=== PATIENT | female | born 1955 | race Caucasian/White ===

== ENCOUNTER 2018-01-04 06:13 | Inpatient (IN) ==
[2018-01-03 11:02] LABS: Basophils # 0.1 10*3/uL (0.0-0.2); Basophils % 0.8 % (0.0-0.8); Eosinophils # 0.2 10*3/uL (0.0-0.87); Eosinophils % 2.4 % (0.00-10.9); Hematocrit 36.3 VOL% (35.7-47.0); Hemoglobin 12.5 GM/DL (12.0-16.0); Immature Granulocytes % 0.4 %; Immature Granulocytes Absolute 0.03 #; Lymphocytes # 2.1 10*3/uL (1.4-4.0); Lymphocytes % 28.1 % (21.3-54.2); Mean Corpuscular HGB Conc 34.4 GM/DL (32-36); Mean Corpuscular Hemoglobin 31 PG (27-34); Mean Corpuscular Volume 91.2 FL (87-102); Mean Platelet Volume 10.2 FL (9.6-12.0); Monocytes # 0.5 10*3/uL (0.11-0.8); Neutrophils # 4.6 10*3/uL (1.4-7.4); Neutrophils % 61.3 % (38.7-73.9); Platelet Count 189 T/CUMM (130-400); Red Blood Count 3.98 MC/CUMM (3.8-5.5); Red Cell Distribution Width 14.4 % (9.3-17.3); White Blood Count 7.4 T/CUMM (4-12)
[2018-01-03 11:10] LABS: INR 0.9; PT Patient Result 9.9 SECS; Partial Thromboplastin Time 30.6 SECS (0-40)
[2018-01-03 11:22] LABS: Apearance,Urine CLOUDY (Clear); Bacteria,Urine Occasional /HPF (Few); Bilirubin,Urine Negative (Negative); Blood, Urine Negative (Negative); Glucose,Urine (UA) Negative (Negative); Hyaline Casts,Urine 4 /LPF (0-3); Ketones,Urine Negative (Negative); Mucus,Urine Occasional /LPF (Occasional); Nitrite,Urine Negative (Negative); Protein,Urine Negative; RBC,Urine 4 /HPF (0-4); Squamous Epithelial Cell,Urine Few /HPF (0-10); Urine Color Yellow (Yellow); Urine Specific Gravity 1.011 (1.001-1.035); WBC,Urine 2 /HPF (0-6)
[2018-01-03 11:29] LABS: Calcium 8.7 MG/DL (8.5-10.1); Osmolality,Calculated 271.1 MOS/KG (273-304); Potassium 3.2 MMOL/L (3.5-5.1)
[~2018-01-04 06:13] MED LIST: DIAZEPAM 5 MG TABLET PO STA; MIDAZOLAM 10 MG/2 ML VIAL ONE; PAPAVERINE 60 MG/2 ML VIAL ONE; SODIUM CHLORIDE 0.9% 1,000 ML IV PRN; SUFentanil 250 MCG/5 ML AMP ONE; TISSUE ADHESIVE 1 EACH APPLICATOR TOP ONE; VANCOMYCIN 1,000 MG VIAL ONE
[2018-01-04] MEDS ORDERED: FAMOTIDINE 20 MG TABLET PO STA (06:14)
[2018-01-04] MEDS ORDERED: DIAZEPAM 5 MG TABLET ONE (06:15)
[2018-01-04] MEDS ORDERED: FAMOTIDINE 20 MG TABLET ONE (06:15)
[2018-01-04] MEDS: LACTATED RINGERS 1,000 ML IV SCH (06:40)
[2018-01-04] MEDS ORDERED: CEFUROXIME 1,500 MG VIAL ONE (07:45)
[2018-01-04] MEDS ORDERED: CALCIUM CHLORIDE 1,000 MG/10 ML SYRINGE IV ONE ×2 (07:49→13:27)
[2018-01-04] MEDS ORDERED: ATROPINE 1 MG/10 ML SYRINGE ONE (07:50)
[2018-01-04] MEDS ORDERED: EPINEPHrine 1 MG/10 ML SYRINGE ONE (07:50)
[2018-01-04] MEDS ORDERED: ALBUMIN 5% 12.5 GM/250 ML VIAL IV ONE (07:50)
[2018-01-04 07:54] LABS: ABG Base Excess 5.3 MMOL/L (-2.5-2.5); ABG HCO3 29.2 MMOL/L (20-26); ABG PCO2 35.1 MM HG (35-48); ABG PH 7.515 (7.35-7.45); ABG TCO2 25.8 MMOL/L (23-27); Ionized Calcium Arterial 1.14 MMOL/L (1.21-1.46); PCO2 Patient Temp Arterial 35.1 MMHG; PH Patient Temp Arterial 7.515; Patient Temperature 37 CELCIUS; Potassium Heart/CVR 2.7 MMOL/L (3.5-5.1); Sodium Heart/CVR 137 MMOL/L (135-145)
[2018-01-04 07:55] LABS: Glucose Heart Surgery 143 MG/DL (74-106); Hematocrit Heart Surgery 29.5 PERCENT (37-47); Hemoglobin Heart Surgery 9.5 G/DL (12.0-16.0)
[2018-01-04] MEDS ORDERED: CEFUROXIME INJ 1,500 MG in SYRINGE 1 EACH IV ONE (08:02)
[2018-01-04 08:23] LABS: Apearance,Urine CLEAR (Clear); Bacteria,Urine Occasional /HPF (Few); Bilirubin,Urine Negative (Negative); Blood, Urine Negative (Negative); Glucose,Urine (UA) Negative (Negative); Ketones,Urine Negative (Negative); Mucus,Urine Occasional /LPF (Occasional); Nitrite,Urine Negative (Negative); Protein,Urine Negative; RBC,Urine 1 /HPF (0-4); Squamous Epithelial Cell,Urine Occasional /HPF (0-10); Urine Color Yellow (Yellow); Urine Specific Gravity 1.015 (1.001-1.035); WBC,Urine 1 /HPF (0-6)
[2018-01-04 09:26] LABS: Hematocrit Heart Surgery 23.5 PERCENT (37-47); Hemoglobin Heart Surgery 7.5 G/DL (12.0-16.0); PCO2 Patient Temp Venous 32.1 MM HG; PH Patient Temp Venous 7.522; PO2 Patient Temp Venous 47.8 MM HG; Potassium Heart/CVR 3.1 MMOL/L (3.5-5.1); VBG Base Excess 3.8 MEQ/L (0-4); VBG HCO3 27.8 MEQ/L (24-28); VBG Oxygen Saturation 93.6 %; VBG PCO2 38.9 MMHG (41-51); VBG PH 7.462; VBG PO2 62.1 MMHG (17-40)
[2018-01-04 09:55] LABS: Hematocrit Heart Surgery 20.1 PERCENT (37-47); Hemoglobin Heart Surgery 6.4 G/DL (12.0-16.0); PCO2 Patient Temp Venous 30.2 MM HG; PH Patient Temp Venous 7.53; PO2 Patient Temp Venous 41.4 MM HG; Potassium Heart/CVR 4.7 MMOL/L (3.5-5.1); VBG HCO3 27.1 MEQ/L (24-28); VBG Oxygen Saturation 92.3 %; VBG PCO2 38.5 MMHG (41-51); VBG PH 7.455; VBG PO2 57.6 MMHG (17-40)
[2018-01-04 10:23] LABS: Hematocrit Heart Surgery 25.3 PERCENT (37-47); Hemoglobin Heart Surgery 8.1 G/DL (12.0-16.0); PCO2 Patient Temp Venous 38.1 MM HG; PH Patient Temp Venous 7.469; PO2 Patient Temp Venous 44.5 MM HG; Potassium Heart/CVR 4.5 MMOL/L (3.5-5.1); VBG Base Excess 3.8 MEQ/L (0-4); VBG HCO3 27.6 MEQ/L (24-28); VBG Oxygen Saturation 83.6 %; VBG PCO2 38.1 MMHG (41-51); VBG PH 7.469; VBG PO2 44.5 MMHG (17-40)
[2018-01-04] MEDS ORDERED: DEXTROSE 5% KCL 20 MEQ 20 MEQ/1,000 ML BAG IV ONE (11:04)
[2018-01-04] MEDS ORDERED: FUROSEMIDE 20 MG/2 ML VIAL ONE (11:05)
[2018-01-04] MEDS ORDERED: methylPREDNISolone SOD SUC 1,000 MG/8 ML VIAL ONE (11:05)
[2018-01-04] MEDS ORDERED: SODIUM BICARBONATE 50 MEQ/50 ML SYRINGE IV ONE ×3 (11:05→17:11)
[2018-01-04] MEDS ORDERED: ALBUMIN 25% 25 GM/100 ML VIAL IV ONE (11:05)
[2018-01-04] MEDS ORDERED: MANNITOL 12.5 GM/50 ML VIAL IV ONE (11:05)
[2018-01-04] MEDS ORDERED: THROMBIN TOPICAL (RECOMBINANT) 5,000 UNIT VIAL TOP ONE (11:05)
[2018-01-04] MEDS ORDERED: PROTAMINE SULFATE 250 MG/25 ML VIAL IV ONE (11:05)
[2018-01-04] MEDS ORDERED: POTASSIUM CHLORIDE 20 MEQ/10 ML VIAL ONE (11:05)
[2018-01-04] MEDS ORDERED: HEPARIN 10,000 UNIT/10 ML VIAL ONE (11:05)
[2018-01-04] MEDS ORDERED: MAGNESIUM SULFATE 1 GM/2 ML VIAL ONE (11:05)
[2018-01-04 11:14] LABS: ABG Base Excess -2.9 MMOL/L (-2.5-2.5); ABG Oxygen Saturation 99.7 % (95-100); ABG PCO2 47.4 MM HG (35-48); ABG PH 7.306 (7.35-7.45); ABG TCO2 21.8 MMOL/L (23-27); Glucose Heart Surgery 287 MG/DL (74-106); Hematocrit Heart Surgery 30.1 PERCENT (37-47); Hemoglobin Heart Surgery 9.7 G/DL (12.0-16.0); Ionized Calcium Arterial 1.16 MMOL/L (1.21-1.46); PCO2 Patient Temp Arterial 47.4 MMHG; PH Patient Temp Arterial 7.306; Patient Temperature 37 CELCIUS; Potassium Heart/CVR 2.9 MMOL/L (3.5-5.1); Sodium Heart/CVR 137 MMOL/L (135-145)
[2018-01-04] MEDS ORDERED: MIDAZOLAM 2 MG/2 ML VIAL IV PRN (11:55)
[2018-01-04] MEDS ORDERED: CHLORHEXIDINE 4% SOLN 118 ML BOTTLE TOP PRN (11:55)
[2018-01-04] MEDS ORDERED: POTASSIUM CHLORIDE RIDER 10 MEQ in PREMIX 1 EACH IV PRN (11:55)
[2018-01-04] MEDS ORDERED: MORPHINE 10 MG/1 ML VIAL IV PRN (11:55)
[2018-01-04] MEDS ORDERED: SODIUM CHLORIDE 0.9% 250 ML IV PRN (11:55)
[2018-01-04] MEDS ORDERED: CALCIUM CHLORIDE 1,000 MG/10 ML SYRINGE IV PRN (11:55)
[2018-01-04] MEDS ORDERED: DEXTROSE 50% 25 GM/50 ML VIAL IV PRN ×2 (11:55)
[2018-01-04] MEDS ORDERED: INSULIN REGULAR 100 UNIT/ML IV PRN (11:55)
[2018-01-04] MEDS ORDERED: MAGNESIUM SULF RIDER 4 GM in PREMIX 1 EACH IV PRN (11:55)
[2018-01-04] MEDS ORDERED: MAGNESIUM SULF RIDER 2 GM in PREMIX 1 EACH IV PRN (11:55)
[2018-01-04] MEDS ORDERED: ACETAMINOPHEN 650 MG SUPP RECTAL PRN (11:55)
[2018-01-04] MEDS ORDERED: ONDANSETRON 4 MG/2 ML VIAL IV PRN (11:55)
[2018-01-04] MEDS ORDERED: EPINEPHrine 1 MG/ML VIAL ONE ×2 (12:00→12:14)
[2018-01-04] MEDS ORDERED: INSULIN REGULAR DRIP 100 ML IV SCH (12:00)
[2018-01-04] MEDS ORDERED: CALCIUM CHLORIDE 1,000 MG/10 ML VIAL IV ONE (12:14)
[2018-01-04] MEDS ORDERED: TRANEXAMIC ACID 1,000 MG/10 ML VIAL IV ONE (12:14)
[2018-01-04] MEDS ORDERED: PHENYLEPHRINE 10 MG/1 ML VIAL IV ONE (12:14)
[2018-01-04] MEDS ORDERED: SODIUM CHLORIDE 0.9% 2,000 ML IV ONE (12:15)
[2018-01-04] MEDS ORDERED: LACTATED RINGERS 3,000 ML IV ONE (12:15)
[2018-01-04] MEDS ORDERED: SODIUM CHLORIDE 0.9% 100 ML IV ONE (12:15)
[2018-01-04] MEDS ORDERED: SODIUM CHLORIDE 0.9% 500 ML IV ONE (12:15)
[2018-01-04] MEDS ORDERED: ETOMIDATE 40 MG/20 ML VIAL IV ONE (12:15)
[2018-01-04] MEDS ORDERED: VECURONIUM 10 MG VIAL IV ONE (12:15)
[2018-01-04] MEDS ORDERED: PROPOFOL 1,500 MG/150 ML BOTTLE IV ONE (12:15)
[2018-01-04 12:44] LABS: ABG Base Excess -3.3 MMOL/L (-2.5-2.5); ABG HCO3 21.7 MMOL/L (20-26); ABG Oxygen Saturation 98.5 % (95-100); ABG PCO2 41.3 MM HG (35-48); ABG TCO2 20.7 MMOL/L (23-27); Glucose Heart Surgery 232 MG/DL (74-106); Hematocrit Heart Surgery 27.3 PERCENT (37-47); Hemoglobin Heart Surgery 8.8 G/DL (12.0-16.0); Potassium Heart/CVR 2.6 MMOL/L (3.5-5.1)
[2018-01-04] MEDS: SODIUM CHLORIDE 0.45% 1,000 ML IV SCH ×2 (12:45)
[2018-01-04 12:47] LABS: Basophils % 0.1 % (0.0-0.8); Eosinophils % 0.5 % (0.00-10.9); Hematocrit 25.6 VOL% (35.7-47.0); Immature Granulocytes % 0.7 %; Immature Granulocytes Absolute 0.06 #; Lymphocytes # 1.4 10*3/uL (1.4-4.0); Lymphocytes % 16.8 % (21.3-54.2); Mean Corpuscular HGB Conc 34.4 GM/DL (32-36); Mean Corpuscular Hemoglobin 31 PG (27-34); Mean Corpuscular Volume 91.1 FL (87-102); Mean Platelet Volume 10.6 FL (9.6-12.0); Monocytes # 0.4 10*3/uL (0.11-0.8); Monocytes % 4.6 % (1.7-12.7); Neutrophils # 6.5 10*3/uL (1.4-7.4); Neutrophils % 77.3 % (38.7-73.9); Red Cell Distribution Width 14.8 % (9.3-17.3); White Blood Count 8.4 T/CUMM (4-12)
[2018-01-04 12:52] LABS: Hemoglobin 8.8 GM/DL (12.0-16.0); Platelet Count 119 T/CUMM (130-400); Red Blood Count 2.81 MC/CUMM (3.8-5.5)
[2018-01-04 12:55] LABS: INR 1.1; Partial Thromboplastin Time 35.1 SECS (0-40)
[2018-01-04] MEDS: POTASSIUM CHLORIDE RIDER 20 MEQ in PREMIX 1 EACH IV PRN ×4 (13:00→15:00)
[2018-01-04 13:04] LABS: Blood Urea Nitrogen 7 MG/DL (7-18); Calcium 6.9 MG/DL (8.5-10.1); Glucose 225 MG/DL (74-106); Potassium 2.8 MMOL/L (3.5-5.1); Sodium 143 MMOL/L (136-145)
[2018-01-04] MEDS: POTASSIUM CHLORIDE RIDER 20 MEQ in PREMIX 1 EACH IV SCH ×4 (13:30→18:39)
[2018-01-04] MEDS ORDERED: CALCIUM GLUCONATE 2,000 MG in SODIUM CHLORIDE 0.9% 100 ML IV ONE (13:30)
[2018-01-04] MEDS: ALBUMIN 5% 12.5 GM in PREMIX 1 EACH IV PRN ×2 (13:36→14:30)
[2018-01-04 14:01] LABS: VBG Base Excess -2.8 MEQ/L (0-4); VBG HCO3 23.9 MEQ/L (24-28); VBG Oxygen Saturation 72.6 %; VBG PCO2 50.4 MMHG (41-51); VBG PH 7.294; VBG PO2 45.5 MMHG (17-40)
[2018-01-04] MEDS: MORPHINE 2 MG/1 ML SYRINGE IV PRN ×2 (15:36→20:29)
[2018-01-04 16:07] LABS: ABG Base Excess -6.4 MMOL/L (-2.5-2.5); ABG HCO3 19.8 MMOL/L (20-26); ABG Oxygen Saturation 95.2 % (95-100); ABG PCO2 42.6 MM HG (35-48); ABG PH 7.286 (7.35-7.45); ABG PO2 89.5 MM HG (80-95); ABG TCO2 21.1 MMOL/L (23-27); Glucose Heart Surgery 255 MG/DL (74-106); Hemoglobin Heart Surgery 9.7 G/DL (12.0-16.0); Potassium Heart/CVR 3.3 MMOL/L (3.5-5.1)
[2018-01-04] MEDS ORDERED: POTASSIUM CHLORIDE RIDER 100 ML IV ONE (17:05)
[2018-01-04] MEDS ORDERED: ALBUMIN 5% 25 GM in PREMIX 1 EACH IV ONE (17:10)
[2018-01-04] MEDS: SODIUM BICARB INJ 50 MEQ in SODIUM CHLORIDE 0.45% 1,000 ML IV SCH (18:00)
[2018-01-04 18:03] LABS: ABG Base Excess -2.5 MMOL/L (-2.5-2.5); ABG HCO3 22.3 MMOL/L (20-26); ABG Oxygen Saturation 98.3 % (95-100); ABG PCO2 59.1 MM HG (35-48); ABG PH 7.241 (7.35-7.45); ABG TCO2 24.2 MMOL/L (23-27); Glucose Heart Surgery 232 MG/DL (74-106); Hematocrit Heart Surgery 24.1 PERCENT (37-47); Hemoglobin Heart Surgery 7.7 G/DL (12.0-16.0); Potassium Heart/CVR 4.3 MMOL/L (3.5-5.1)
[2018-01-04 18:58] LABS: ABG Base Excess 0.9 MMOL/L (-2.5-2.5); ABG HCO3 25.2 MMOL/L (20-26); ABG Oxygen Saturation 99.5 % (95-100); ABG PCO2 38.7 MM HG (35-48); ABG PH 7.422 (7.35-7.45); ABG TCO2 23.7 MMOL/L (23-27); Glucose Heart Surgery 222 MG/DL (74-106); Hematocrit Heart Surgery 23.4 PERCENT (37-47); Hemoglobin Heart Surgery 7.5 G/DL (12.0-16.0); Potassium Heart/CVR 4.8 MMOL/L (3.5-5.1)
[2018-01-04] MEDS ORDERED: PROPOFOL 1,000 MG/100 ML BOTTLE IV SCH (19:00)
[2018-01-04 20:05] LABS: ABG Base Excess 1.6 MMOL/L (-2.5-2.5); ABG HCO3 26.2 MMOL/L (20-26); ABG Oxygen Saturation 97.6 % (95-100); ABG PCO2 41.3 MM HG (35-48); ABG PO2 121.1 MM HG (80-95); ABG TCO2 27.5 MMOL/L (23-27); Glucose Heart Surgery 187 MG/DL (74-106); Hemoglobin Heart Surgery 7.7 G/DL (12.0-16.0); Potassium Heart/CVR 4.3 MMOL/L (3.5-5.1)
[2018-01-04 20:27] LABS: Lactic Acid 3.5 MMOL/L (0.4-2.0)
[2018-01-04] MEDS: CHLORHEXIDINE 0.12% ORAL RINSE 60 ML BOTTLE SWISH/SPIT SCH (21:33)
[2018-01-04] MEDS: CEFUROXIME INJ 1,500 MG in SYRINGE 1 EACH IV SCH (23:49)
[2018-01-05] MEDS: SODIUM BICARB INJ 50 MEQ in SODIUM CHLORIDE 0.45% 1,000 ML IV SCH (02:50)
[2018-01-05] MEDS: SODIUM CHLORIDE 0.45% 1,000 ML IV SCH ×2 (02:51→08:37)
[2018-01-05 03:44] LABS: Hematocrit 20.4 VOL% (35.7-47.0); Hemoglobin 7.2 GM/DL (12.0-16.0); Immature Granulocytes % 0.5 %; Immature Granulocytes Absolute 0.03 #; Lymphocytes # 0.8 10*3/uL (1.4-4.0); Lymphocytes % 12.5 % (21.3-54.2); Mean Corpuscular HGB Conc 35.3 GM/DL (32-36); Mean Corpuscular Hemoglobin 32 PG (27-34); Mean Corpuscular Volume 91.1 FL (87-102); Mean Platelet Volume 10.7 FL (9.6-12.0); Monocytes # 0.2 10*3/uL (0.11-0.8); Monocytes % 3.6 % (1.7-12.7); Neutrophils # 5.1 10*3/uL (1.4-7.4); Neutrophils % 83.4 % (38.7-73.9); Platelet Count 106 T/CUMM (130-400); Red Blood Count 2.24 MC/CUMM (3.8-5.5); Red Cell Distribution Width 15.2 % (9.3-17.3); White Blood Count 6.1 T/CUMM (4-12)
[2018-01-05] MEDS: MORPHINE 2 MG/1 ML SYRINGE IV PRN (03:52)
[2018-01-05 03:59] LABS: Calcium 8.3 MG/DL (8.5-10.1); Osmolality,Calculated 281.1 MOS/KG (273-304); Potassium 4.1 MMOL/L (3.5-5.1)
[2018-01-05 04:45] LABS: ABG Base Excess 4.8 MMOL/L (-2.5-2.5); ABG HCO3 29.4 MMOL/L (20-26); ABG Oxygen Saturation 97.3 % (95-100); ABG PCO2 44.3 MM HG (35-48); ABG PO2 102.1 MM HG (80-95); ABG TCO2 30.8 MMOL/L (23-27); Glucose Heart Surgery 124 MG/DL (74-106); Hemoglobin Heart Surgery 7.6 G/DL (12.0-16.0); Potassium Heart/CVR 4.1 MMOL/L (3.5-5.1)
[2018-01-05] MEDS ORDERED: FUROSEMIDE 40 MG/4 ML VIAL IV ONE ×2 (06:01→18:24)
[2018-01-05] MEDS ORDERED: METOPROLOL TARTRATE 5 MG/5 ML VIAL IV ONE ×2 (06:03→18:24)
[2018-01-05] MEDS: LACTATED RINGERS 1,000 ML IV SCH (06:58)
[2018-01-05] MEDS: CLOPIDOGREL 75 MG TABLET PO SCH (08:37)
[2018-01-05] MEDS: CHLORHEXIDINE 0.12% ORAL RINSE 60 ML BOTTLE SWISH/SPIT SCH ×2 (08:38→21:54)
[2018-01-05] MEDS: CARVEDILOL 3.125 MG TABLET PO SCH ×2 (08:38→21:54)
[2018-01-05] MEDS: ATORVASTATIN 40 MG TABLET PO SCH ×2 (11:13→21:54)
[2018-01-05] MEDS: ASPIRIN EC 325 MG TABLET PO SCH (11:20)
[2018-01-05] MEDS: INSULIN REGULAR 100 UNIT/ML SUBCUT SCH ×3 (11:20→22:06)
[2018-01-05] MEDS: CEFUROXIME INJ 1,500 MG in SYRINGE 1 EACH IV SCH ×2 (11:24→23:51)
[2018-01-05] MEDS: traMADol 50 MG TABLET PO PRN (11:42)
[2018-01-05] MEDS: LEVALBUTEROL 1.25 MG/3 ML NEB RESP TX SCH ×2 (11:51→19:00)
[2018-01-05] MEDS ORDERED: FUROSEMIDE 40 MG TABLET PO SCH (11:55)
[2018-01-05] MEDS: HYDROmorphone 2 MG/1 ML VIAL IV PRN (12:47)
[2018-01-05 18:49] LABS: Basophils % 0.1 % (0.0-0.8); Hematocrit 23.1 VOL% (35.7-47.0); Hemoglobin 7.5 GM/DL (12.0-16.0); Immature Granulocytes % 1.1 %; Immature Granulocytes Absolute 0.13 #; Lymphocytes # 0.9 10*3/uL (1.4-4.0); Lymphocytes % 7.7 % (21.3-54.2); Mean Corpuscular HGB Conc 32.5 GM/DL (32-36); Mean Corpuscular Hemoglobin 31 PG (27-34); Mean Corpuscular Volume 96.3 FL (87-102); Mean Platelet Volume 11.1 FL (9.6-12.0); Monocytes # 0.4 10*3/uL (0.11-0.8); Monocytes % 3.3 % (1.7-12.7); Neutrophils # 10.5 10*3/uL (1.4-7.4); Neutrophils % 87.8 % (38.7-73.9); Platelet Count 135 T/CUMM (130-400); Red Cell Distribution Width 15.3 % (9.3-17.3)
[2018-01-05] MEDS: FAMOTIDINE 20 MG TABLET PO SCH (21:54)
[2018-01-05] MEDS: AMITRIPTYLINE 25 MG TABLET PO SCH (21:54)
[2018-01-05] MEDS: PANTOPRAZOLE 40 MG TABLET PO SCH (21:54)
[2018-01-06] MEDS: traMADol 50 MG TABLET PO PRN ×3 (00:10→13:20)
[2018-01-06] MEDS: INSULIN REGULAR 100 UNIT/ML SUBCUT SCH ×6 (00:17→21:58)
[2018-01-06] MEDS: LEVALBUTEROL 1.25 MG/3 ML NEB RESP TX SCH ×3 (03:48→10:57)
[2018-01-06 06:30] LABS: Basophils % 0.1 % (0.0-0.8); Hematocrit 22.3 VOL% (35.7-47.0); Hemoglobin 7.4 GM/DL (12.0-16.0); Immature Granulocytes % 0.5 %; Immature Granulocytes Absolute 0.05 #; Lymphocytes # 1.2 10*3/uL (1.4-4.0); Lymphocytes % 11.9 % (21.3-54.2); Mean Corpuscular HGB Conc 33.2 GM/DL (32-36); Mean Corpuscular Hemoglobin 32 PG (27-34); Mean Corpuscular Volume 94.9 FL (87-102); Mean Platelet Volume 11.3 FL (9.6-12.0); Monocytes # 0.3 10*3/uL (0.11-0.8); Monocytes % 3.5 % (1.7-12.7); Neutrophils # 8.1 10*3/uL (1.4-7.4); Platelet Count 117 T/CUMM (130-400); Red Blood Count 2.35 MC/CUMM (3.8-5.5); Red Cell Distribution Width 14.8 % (9.3-17.3); White Blood Count 9.7 T/CUMM (4-12)
[2018-01-06] MEDS: LEVOTHYROXINE 50 MCG TABLET PO SCH (06:38)
[2018-01-06 06:56] LABS: Calcium 8.4 MG/DL (8.5-10.1); Osmolality,Calculated 278.7 MOS/KG (273-304); Potassium 3.8 MMOL/L (3.5-5.1)
[2018-01-06] MEDS: CARVEDILOL 3.125 MG TABLET PO SCH (09:51)
[2018-01-06] MEDS: CHLORHEXIDINE 0.12% ORAL RINSE 60 ML BOTTLE SWISH/SPIT SCH ×2 (09:51→22:13)
[2018-01-06] MEDS: FUROSEMIDE 40 MG TABLET PO SCH ×2 (09:51→15:27)
[2018-01-06] MEDS: PANTOPRAZOLE 40 MG TABLET PO SCH ×2 (09:51→21:45)
[2018-01-06] MEDS: ESCITALOPRAM 10 MG TABLET PO SCH (09:51)
[2018-01-06] MEDS: LISINOPRIL 5 MG TABLET PO SCH (09:51)
[2018-01-06] MEDS: ASPIRIN EC 325 MG TABLET PO SCH (09:51)
[2018-01-06] MEDS: CLOPIDOGREL 75 MG TABLET PO SCH (09:51)
[2018-01-06] MEDS: methylPREDNISolone SOD SUC 40 MG/1 ML VIAL IV SCH ×2 (14:46→21:58)
[2018-01-06] MEDS: HYDROmorphone 2 MG/1 ML VIAL IV PRN (16:45)
[2018-01-06] MEDS: ALBUTEROL/IPRATROPIUM 3 ML NEB RESP TX SCH (19:26)
[2018-01-06] MEDS: FAMOTIDINE 20 MG TABLET PO SCH (21:45)
[2018-01-06] MEDS: CARVEDILOL 6.25 MG TABLET PO SCH (21:45)
[2018-01-06] MEDS: ATORVASTATIN 40 MG TABLET PO SCH (21:45)
[2018-01-06] MEDS: oxyCODONE/ACETAMINOPHEN 5-325 MG TABLET PO PRN (21:45)
[2018-01-06] MEDS: AMITRIPTYLINE 25 MG TABLET PO SCH (21:45)
[2018-01-06] MEDS: DOCUSATE SODIUM 100 MG CAPSULE PO SCH (21:45)
[2018-01-06] MEDS ORDERED: SODIUM CHLORIDE 0.9% 1,000 ML IV PRN (21:51)
[2018-01-07] MEDS: ALBUTEROL/IPRATROPIUM 3 ML NEB RESP TX SCH ×4 (00:08→19:54)
[2018-01-07] MEDS: INSULIN REGULAR 100 UNIT/ML SUBCUT SCH ×6 (00:39→21:10)
[2018-01-07] MEDS: methylPREDNISolone SOD SUC 40 MG/1 ML VIAL IV SCH ×3 (04:50→21:10)
[2018-01-07 05:55] LABS: Hematocrit 26.4 VOL% (35.7-47.0); Immature Granulocytes % 0.8 %; Immature Granulocytes Absolute 0.06 #; Lymphocytes # 0.7 10*3/uL (1.4-4.0); Lymphocytes % 8.1 % (21.3-54.2); Mean Corpuscular HGB Conc 33.7 GM/DL (32-36); Mean Corpuscular Hemoglobin 31 PG (27-34); Mean Platelet Volume 11.3 FL (9.6-12.0); Monocytes # 0.2 10*3/uL (0.11-0.8); Neutrophils % 88.1 % (38.7-73.9); Platelet Count 121 T/CUMM (130-400); Red Blood Count 2.87 MC/CUMM (3.8-5.5); Red Cell Distribution Width 14.8 % (9.3-17.3)
[2018-01-07 05:58] LABS: Hemoglobin 8.9 GM/DL (12.0-16.0)
[2018-01-07 06:31] LABS: Osmolality,Calculated 275.2 MOS/KG (273-304); Potassium 3.7 MMOL/L (3.5-5.1)
[2018-01-07] MEDS: LEVOTHYROXINE 50 MCG TABLET PO SCH (06:46)
[2018-01-07] MEDS: CLOPIDOGREL 75 MG TABLET PO SCH (08:27)
[2018-01-07] MEDS: PANTOPRAZOLE 40 MG TABLET PO SCH ×2 (08:27→21:09)
[2018-01-07] MEDS: DOCUSATE SODIUM 100 MG CAPSULE PO SCH ×2 (08:27→21:09)
[2018-01-07] MEDS: LISINOPRIL 5 MG TABLET PO SCH (08:27)
[2018-01-07] MEDS: FUROSEMIDE 40 MG TABLET PO SCH ×2 (08:27→16:29)
[2018-01-07] MEDS: CARVEDILOL 6.25 MG TABLET PO SCH ×2 (08:27→21:09)
[2018-01-07] MEDS: ESCITALOPRAM 10 MG TABLET PO SCH (08:27)
[2018-01-07] MEDS: BISACODYL 5 MG TABLET PO SCH (08:27)
[2018-01-07] MEDS: ASPIRIN EC 325 MG TABLET PO SCH (08:27)
[2018-01-07] MEDS: CHLORHEXIDINE 0.12% ORAL RINSE 60 ML BOTTLE SWISH/SPIT SCH ×2 (09:23→21:17)
[2018-01-07] MEDS: oxyCODONE/ACETAMINOPHEN 5-325 MG TABLET PO PRN ×2 (12:51→21:09)
[2018-01-07] MEDS: ATORVASTATIN 40 MG TABLET PO SCH (21:09)
[2018-01-07] MEDS: FAMOTIDINE 20 MG TABLET PO SCH (21:09)
[2018-01-07] MEDS: AMITRIPTYLINE 25 MG TABLET PO SCH (21:09)
[2018-01-08] MEDS: INSULIN REGULAR 100 UNIT/ML SUBCUT SCH ×7 (00:26→23:40)
[2018-01-08] MEDS: traMADol 50 MG TABLET PO PRN (00:30)
[2018-01-08] MEDS: ALBUTEROL/IPRATROPIUM 3 ML NEB RESP TX SCH ×4 (01:31→19:22)
[2018-01-08] MEDS: methylPREDNISolone SOD SUC 40 MG/1 ML VIAL IV SCH ×3 (06:06→21:17)
[2018-01-08] MEDS: LEVOTHYROXINE 50 MCG TABLET PO SCH (06:06)
[2018-01-08] MEDS: oxyCODONE/ACETAMINOPHEN 5-325 MG TABLET PO PRN (06:09)
[2018-01-08] MEDS: BISACODYL 5 MG TABLET PO SCH (08:30)
[2018-01-08] MEDS: CLOPIDOGREL 75 MG TABLET PO SCH (08:30)
[2018-01-08] MEDS: PANTOPRAZOLE 40 MG TABLET PO SCH ×2 (08:31→21:18)
[2018-01-08] MEDS: DOCUSATE SODIUM 100 MG CAPSULE PO SCH ×2 (08:31→21:18)
[2018-01-08] MEDS: FUROSEMIDE 40 MG TABLET PO SCH ×2 (08:31→16:43)
[2018-01-08] MEDS: CARVEDILOL 6.25 MG TABLET PO SCH ×2 (08:31→21:18)
[2018-01-08] MEDS: LISINOPRIL 5 MG TABLET PO SCH (08:31)
[2018-01-08] MEDS: ESCITALOPRAM 10 MG TABLET PO SCH (08:31)
[2018-01-08] MEDS: ASPIRIN EC 325 MG TABLET PO SCH (08:31)
[2018-01-08] MEDS: CHLORHEXIDINE 0.12% ORAL RINSE 60 ML BOTTLE SWISH/SPIT SCH ×2 (08:36→21:18)
[2018-01-08] MEDS: FAMOTIDINE 20 MG TABLET PO SCH (21:17)
[2018-01-08] MEDS: AMITRIPTYLINE 25 MG TABLET PO SCH (21:18)
[2018-01-08] MEDS: ATORVASTATIN 40 MG TABLET PO SCH (21:18)
[2018-01-09] MEDS: ALBUTEROL/IPRATROPIUM 3 ML NEB RESP TX SCH ×4 (01:42→19:16)
[2018-01-09] MEDS: INSULIN REGULAR 100 UNIT/ML SUBCUT SCH ×5 (04:50→21:07)
[2018-01-09] MEDS: methylPREDNISolone SOD SUC 40 MG/1 ML VIAL IV SCH (06:13)
[2018-01-09] MEDS: LEVOTHYROXINE 50 MCG TABLET PO SCH (06:13)
[2018-01-09] MEDS: BISACODYL 5 MG TABLET PO SCH (08:22)
[2018-01-09] MEDS: DOCUSATE SODIUM 100 MG CAPSULE PO SCH ×2 (08:22→21:07)
[2018-01-09] MEDS: ESCITALOPRAM 10 MG TABLET PO SCH (08:22)
[2018-01-09] MEDS: CARVEDILOL 6.25 MG TABLET PO SCH ×2 (08:23→21:11)
[2018-01-09] MEDS: FUROSEMIDE 40 MG TABLET PO SCH ×2 (08:23→16:25)
[2018-01-09] MEDS: CLOPIDOGREL 75 MG TABLET PO SCH (08:23)
[2018-01-09] MEDS: LISINOPRIL 5 MG TABLET PO SCH (08:23)
[2018-01-09] MEDS: PANTOPRAZOLE 40 MG TABLET PO SCH ×2 (08:23→21:07)
[2018-01-09] MEDS: ASPIRIN EC 325 MG TABLET PO SCH (08:23)
[2018-01-09] MEDS: CHLORHEXIDINE 0.12% ORAL RINSE 60 ML BOTTLE SWISH/SPIT SCH ×2 (09:10→21:51)
[2018-01-09] MEDS: FAMOTIDINE 20 MG TABLET PO SCH (21:06)
[2018-01-09] MEDS: ATORVASTATIN 40 MG TABLET PO SCH (21:06)
[2018-01-09] MEDS: AMITRIPTYLINE 25 MG TABLET PO SCH (21:07)
[2018-01-10] MEDS: ALBUTEROL/IPRATROPIUM 3 ML NEB RESP TX SCH ×3 (00:34→14:22)
[2018-01-10] MEDS: INSULIN REGULAR 100 UNIT/ML SUBCUT SCH ×4 (00:35→11:40)
[2018-01-10 04:27] LABS: Basophils % 0.2 % (0.0-0.8); Eosinophils # 0.1 10*3/uL (0.0-0.87); Eosinophils % 0.4 % (0.00-10.9); Hemoglobin 12.6 GM/DL (12.0-16.0); Immature Granulocytes % 0.8 %; Lymphocytes % 30.9 % (21.3-54.2); Mean Corpuscular HGB Conc 34.1 GM/DL (32-36); Mean Corpuscular Hemoglobin 31 PG (27-34); Mean Corpuscular Volume 90.7 FL (87-102); Mean Platelet Volume 10.5 FL (9.6-12.0); Monocytes # 0.8 10*3/uL (0.11-0.8); Monocytes % 6.1 % (1.7-12.7); NRBC # 0.07 10*3/uL; Neutrophils % 61.6 % (38.7-73.9); Platelet Count 237 T/CUMM (130-400); Red Blood Count 4.08 MC/CUMM (3.8-5.5); Red Cell Distribution Width 14.4 % (9.3-17.3)
[2018-01-10 04:59] LABS: Calcium 8.7 MG/DL (8.5-10.1); Osmolality,Calculated 281.8 MOS/KG (273-304)
[2018-01-10 05:07] LABS: Potassium 2.3 MMOL/L (3.5-5.1)
[2018-01-10] MEDS: POTASSIUM CHLORIDE RIDER 20 MEQ in PREMIX 1 EACH IV PRN ×2 (06:10→08:50)
[2018-01-10] MEDS ORDERED: PROMETHAZINE INJ 12.5 MG in SODIUM CHLORIDE 0.9% 50 ML IV PRN (07:06)
[2018-01-10] MEDS ORDERED: predniSONE 20 MG TABLET PO SCH (09:00)
[2018-01-10] MEDS: DOCUSATE SODIUM 100 MG CAPSULE PO SCH (09:07)
[2018-01-10] MEDS: ESCITALOPRAM 10 MG TABLET PO SCH (09:08)
[2018-01-10] MEDS: PANTOPRAZOLE 40 MG TABLET PO SCH (09:08)
[2018-01-10] MEDS: LISINOPRIL 5 MG TABLET PO SCH (09:08)
[2018-01-10] MEDS: ASPIRIN EC 325 MG TABLET PO SCH (09:08)
[2018-01-10] MEDS: CARVEDILOL 6.25 MG TABLET PO SCH (09:08)
[2018-01-10] MEDS: LEVOTHYROXINE 50 MCG TABLET PO SCH (09:08)
[2018-01-10] MEDS: CLOPIDOGREL 75 MG TABLET PO SCH (09:09)
[2018-01-10] MEDS: BISACODYL 5 MG TABLET PO SCH (09:09)
[2018-01-10] MEDS: FUROSEMIDE 40 MG TABLET PO SCH (09:09)
[2018-01-10] MEDS ORDERED: SODIUM CHLOR 0.9% KCL 20 MEQ 20 MEQ/1,000 ML BAG IV SCH (09:30)
[2018-01-10] MEDS: CHLORHEXIDINE 0.12% ORAL RINSE 60 ML BOTTLE SWISH/SPIT SCH (09:31)
[2018-01-10] MEDS: POTASSIUM CHLORIDE 20 MEQ TABLET PO SCH ×3 (09:50→14:30)
[2018-01-10] MEDS ORDERED: POTASSIUM CHLORIDE INJ 60 MEQ in SODIUM CHLORIDE 0.9% 500 ML IV SCH (10:00)
[2018-01-10 16:22] VITALS: BP 105/66
== END 2018-01-10 16:54 | disposition home health service (06) | DRG 236 ==
LOC: N.SDSINP 06:13 → SUPCPDRO 06:13 → N.CVR 07:36 → N.TELES 01-05 16:36
PROVIDERS: ADMIT Thoracic Surgery (Cardiothoracic Vascular Surgery); ATTEND Thoracic Surgery (Cardiothoracic Vascular Surgery)